=== PATIENT | male | born 2000 | race African-American/Black ===

== ENCOUNTER 2019-10-29 13:38 | Emergency (ER) | payer MEDICAID ==
[~2019-10-29] VITALS: Ht 170.2 cm; Wt 70.3 kg
--- NOTE | 2019-10-29 13:45 | NUR ---
Dr. Cruz at bedside for MSE
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
[2019-10-29] MEDS ORDERED: HYDROCODONE/APAP 5-325MG TABLET PO ONE ×2 (14:15→15:30)
[2019-10-29] MEDS ORDERED: HYDROCODONE/APAP 5-325MG TABLET ONE ×2 (14:31→15:37)
[2019-10-29] MEDS ORDERED: IBUPROFEN 800 MG TABLET PO ONE (15:30)
[2019-10-29] MEDS ORDERED: IBUPROFEN 800 MG TABLET ONE (15:38)
--- NOTE | 2019-10-29 15:50 | NUR ---
Patient discharged to home in stable condition. Written and verbal after care instructions given. Patient verbalizes understanding of instructions. Stressed follow up or return to ER for worsening s/s. Patient ambulating with steady gait. NAD noted. Patient states mother is outside of ED to take him home
[2019-10-29 15:55] VITALS: BP 124/83
== END 2019-10-29 15:50 | disposition home or self-care (01) ==
LOC: ER 13:38
DX: S43.402A Unspecified sprain of left shoulder joint, initial encounter (principal); S16.1XXA Strain of muscle, fascia and tendon at neck level, initial encounter; S39.012A Strain of muscle, fascia and tendon of lower back, initial encounter; S09.90XA Unspecified injury of head, initial encounter; V43.52XA Car driver injured in collision with other type car in traffic accident, initial encounter; Y92.410 Unspecified street and highway as the place of occurrence of the external cause
CPT/HCPCS: 70450; 71045; 72125; 73030; A4663